=== PATIENT | male | born 1975 | race Caucasian/White ===

== ENCOUNTER 2017-11-02 18:34 | Emergency (ER) | payer SELFPAY ==
[~2017-11-02] VITALS: Ht 182.9 cm; Wt 97.5 kg
[~2017-11-02 18:34] MED LIST: PAXIL PO
[2017-11-02 18:42] VITALS: BP 148/104
== END 2017-11-02 18:40 | disposition left against medical advice (07) ==
LOC: ER 18:34
DX: M25.511 Pain in right shoulder (principal); Z53.21 Procedure and treatment not carried out due to patient leaving prior to being seen by health care provider

== ENCOUNTER 2022-08-15 12:50 | Emergency (ER) | payer SELFPAY ==
[~2022-08-15] VITALS: Ht 182.9 cm; Wt 110.8 kg
[2022-08-15 13:29] VITALS: BP 147/96
[2022-08-15] MEDS ORDERED: ACET1CAP14 PO (15:23)
[2022-08-15] MEDS ORDERED: CEPH-510 PO (15:23)
== END 2022-08-15 15:23 | disposition home or self-care (01) ==
LOC: ER 12:50
DX: L03.115 Cellulitis of right lower limb (principal); F17.210 Nicotine dependence, cigarettes, uncomplicated; Z88.0 Allergy status to penicillin
CPT/HCPCS: 36415; 73630; 84550

== ENCOUNTER 2022-08-18 14:09 | Inpatient (IN) | payer MEDICAID, OTHER ==
[~2022-08-18] VITALS: Ht 182.9 cm; Wt 107.1 kg
[~2022-08-18 14:09] MED LIST changes: +ACET1CAP14 PO; +CEPH-510 PO
[2022-08-18 14:57] LABS: Basophils # (auto) 0.1 10 ^3/uL (0-0.2); Eosinophils # (auto) 0.2 10 ^3/uL (0-0.8); Eosinophils % (auto) 3.6 % (0.0-7.0); Hemoglobin 15.4 g/dL (13.5-17.5); Lymphocytes # (auto) 2.4 10 ^3/uL (0.4-5.4); Lymphocytes % (auto) 38.7 % (10.0-50.0); Mean Corpuscular Hemoglobin 32.6 pg (28.0-32.0); Mean Corpuscular Hgb Conc. 34.3 g/dL (32.0-36.0); Mean Corpuscular Volume 94.9 fL (80.0-100.0); Monocytes # (auto) 0.6 10 ^3/uL (0-1.3); Neutrophils % (auto) 47.7 % (37.0-80.0); Nucleated Red Blood Cells % 0.4 %; Red Blood Cells 4.74 10^6/uL (4.5-5.90); Red Cell Distribution Width 13.1 % (11.8-14.3); White Blood Cell 6.3 10^3/uL (4.4-10.8)
[2022-08-18 15:13] LABS: Albumin 4.1 g/dL (3.4-5.0); BUN/Creatinine Ratio 11.5; Calcium 9.5 mg/dL (8.5-10.1); Potassium 4.3 mmol/L (3.5-5.1)
[2022-08-18 15:16] LABS: CRP High Sensitivity 0.73 mg/dL (< 0.3)
[2022-08-18 16:18] LABS: Bilirubin, Total 0.3 mg/dL (0.2-1.0); Total Protein 8.5 g/dL (6.4-8.2)
[2022-08-18] MEDS ORDERED: CLINDAMYCIN 900MG IV 50 ML IV ONE (17:00)
[2022-08-18] MEDS ORDERED: HYDROcodone-ACET 5/325MG TAB PO ONE (20:00)
[2022-08-18] MEDS ORDERED: ONDANSETRON HCL 4 MG/2 ML VIAL IV ONE (20:00)
[2022-08-18 20:28] LABS: Urine WBC None Seen /hpf (0 - 3)
[2022-08-18 20:52] LABS: Urine Bacteria NONE SEEN /hpf (None Seen); Urine Blood Negative /uL (Negative); Urine Specific Gravity 1.007 (1.001-1.035)
[2022-08-18 21:00] VITALS: BP 137/92
[2022-08-18] MEDS ORDERED: ACETAMINOPHEN 325 MG TAB PO PRN (21:30)
[2022-08-18] MEDS ORDERED: MORPHINE SULFATE INJ 2 MG/ml SYRG IV PRN (21:30)
[2022-08-18] MEDS ORDERED: CLINDAMYCIN 600MG IV 50 ML IV SCH (22:00)
[2022-08-18 22:25] LABS: Cholesterol 214 mg/dL (< 200); HDL Cholesterol 50 mg/dL (40-59); LDL Cholesterol 130 mg/dL (< 100); Triglycerides 322 mg/dL (< 150)
[2022-08-18] MEDS ORDERED: COLCHICINE 0.6 MG CAP PO ONE (23:00)
[2022-08-19] VITALS (7 sets, daily range): BP systolic 119–139; BP diastolic 69–92
[2022-08-19] MEDS: ONDANSETRON HCL 4 MG/2 ML VIAL IV PRN ×6 (00:03→21:23)
[2022-08-19] MEDS: HYDROcodone-ACET 5/325MG TAB PO PRN ×6 (00:03→21:16)
[2022-08-19 06:05] LABS: Basophils # (auto) 0 10 ^3/uL (0-0.2); Basophils % (auto) 0.9 % (0.0-2.0); Eosinophils # (auto) 0.2 10 ^3/uL (0-0.8); Eosinophils % (auto) 3.2 % (0.0-7.0); Hematocrit 41.7 % (41.0-53.0); Hemoglobin 14.6 g/dL (13.5-17.5); Lymphocytes # (auto) 1.8 10 ^3/uL (0.4-5.4); Lymphocytes % (auto) 32.9 % (10.0-50.0); Mean Corpuscular Hemoglobin 33.1 pg (28.0-32.0); Mean Corpuscular Volume 94.7 fL (80.0-100.0); Monocytes # (auto) 0.6 10 ^3/uL (0-1.3); Monocytes % (auto) 10.5 % (0.0-12.0); Neutrophils # (auto) 2.8 10 ^3/uL (1.6-8.6); Neutrophils % (auto) 52.5 % (37.0-80.0); Potassium 4.1 mmol/L (3.5-5.1); Red Blood Cells 4.41 10^6/uL (4.5-5.90); Red Cell Distribution Width 13.1 % (11.8-14.3); White Blood Cell 5.4 10^3/uL (4.4-10.8)
[2022-08-19 06:19] LABS: Albumin 3.7 g/dL (3.4-5.0); BUN/Creatinine Ratio 14.8; Calcium 9.2 mg/dL (8.5-10.1)
[2022-08-19 06:22] LABS: Bilirubin, Total 0.5 mg/dL (0.2-1.0); Total Protein 7.6 g/dL (6.4-8.2)
[2022-08-19] MEDS: ENOXAPARIN SOD 40 MG/0.4 ML SYRINGE SC SCH (09:51)
[2022-08-19] MEDS: COLCHICINE 0.6 MG CAP PO SCH (09:51)
[2022-08-19] MEDS ORDERED: ATORVASTATIN 20 MG TAB PO SCH (22:00)
[2022-08-20] MEDS: HYDROcodone-ACET 5/325MG TAB PO PRN ×2 (05:07→11:16)
[2022-08-20] MEDS: ONDANSETRON HCL 4 MG/2 ML VIAL IV PRN (05:11)
[2022-08-20 05:23] VITALS: BP 117/71
[2022-08-20 09:00] VITALS: BP 113/73
[2022-08-20] MEDS ORDERED: METH4PAK PO (09:28)
[2022-08-20] MEDS ORDERED: HYDR-4902 PO (09:28)
[2022-08-20] MEDS ORDERED: ONDA-144 PO (09:28)
[2022-08-20] MEDS ORDERED: PANTOPRAZOLE 40 MG TAB PO SCH (10:00)
[2022-08-20] MEDS: COLCHICINE 0.6 MG CAP PO SCH (10:59)
[2022-08-20] MEDS: ENOXAPARIN SOD 40 MG/0.4 ML SYRINGE SC SCH (11:00)
[2022-08-20 13:00] VITALS: BP_SYST 126; BP_SYST 139; BP_DIAS 79; BP_DIAS 85
[2022-08-20 13:18] VITALS: BP 113/73
== END 2022-08-20 13:50 | disposition home or self-care (01) | DRG 351 ==
LOC: ER 14:09 → OVERFLOW 21:21 → CENTRAL 23:07
PROVIDERS: ADMIT Registered Nurse; ATTEND Family Medicine
DX: M19.071 Primary osteoarthritis, right ankle and foot (principal); L03.115 Cellulitis of right lower limb; E66.9 Obesity, unspecified; M10.9 Gout, unspecified; E78.00 Pure hypercholesterolemia, unspecified; Z20.822 Contact with and (suspected) exposure to COVID-19; F17.210 Nicotine dependence, cigarettes, uncomplicated; Z79.899 Other long term (current) drug therapy; Z88.0 Allergy status to penicillin; Z68.32 Body mass index [BMI] 32.0-32.9, adult
CPT/HCPCS: 36415; 73630; 73700; 80053; 80061; 81001; 83036; 83605; 84550; 85025; 85652; 86141; 87426; 93926; 93971; 96365; 96366; 96375; G0378; J2405; J3490

== ENCOUNTER 2024-01-16 18:08 | Emergency (ER) | payer MEDICAID ==
[~2024-01-16] VITALS: Ht 180.3 cm; Wt 109.5 kg
[~2024-01-16 18:08] MED LIST changes: +HYDR-4902 PO; +METH4PAK PO; +ONDA-144 PO
[2024-01-16 18:25] VITALS: BP 157/107; PULSE 120; RESP 16; O2SAT 98
[2024-01-16] MEDS ORDERED: CEPH500C PO (23:12)
[2024-01-16] MEDS ORDERED: IBUP-1456 PO (23:12)
[2024-01-16] MEDS: TETANUS-DIPTH-ACEL PERTUSSIS 0.5ML SYR Tdap IM ONE (23:21)
== END 2024-01-16 23:42 | disposition home or self-care (01) ==
LOC: ER 18:08
DX: S81.011A Laceration without foreign body, right knee, initial encounter (principal); F17.210 Nicotine dependence, cigarettes, uncomplicated; Z88.0 Allergy status to penicillin; W26.8XXA Contact with other sharp object(s), not elsewhere classified, initial encounter; Y93.89 Activity, other specified; Y92.89 Other specified places as the place of occurrence of the external cause; Y99.8 Other external cause status
CPT/HCPCS: 12002; 90471; 90715